=== PATIENT | male | born 1955 | race Caucasian/White ===

== ENCOUNTER → 2020-11-28 | Outpatient (CLI) | payer BC ==
--- NOTE | 2020-11-30 14:07 | PATH ---
[address] [address] PATHOLOGY RPT PROCEDURE Name: JAMES MAYER Room: [facility].#: [id number] Admission: 11/28/20 Date of : 57 Discharge: Report #: [id number] Path Case #: [id number] [facility] Accession Number: [id number] . 01 Material submitted: . foot - TISSUE BX OF LEFT FOOT WOUND. Modifiers: left . 02 Diagnosis: Tissue biopsy of left foot wound: - Scant squamous epithelium and predominantly chronic and acutely inflamed and necrotic fibrovascular stroma, negative for granulomas and malignancy. (SLY/db; 11/30/2020) [facility] 11/30/2020 1328 Local . 02 Electronically signed: . Kobe Burgos MD, Pathologist NPI- [id number] . 01 Gross description: . Received in formalin labeled "James Mayer, tissue BX L foot" are multiple kaye-brown soft tissue fragments measuring in aggregate 0.7 x 0.5 x 0.1 cm. The specimen is submitted entirely in A1. ([facility] [place]; 11/29/2020) [facility] 11/29/2020 1701 Local . 02 Pathologist provided ICD-10: M79.9 . 02 CPT . 389462 Specimen Comment: A courtesy copy of this report has been sent to [phone], [phone] Specimen Comment: [id number] Specimen Comment: Report sent to / DR RICHTER Performed at: 01 [facility] [address], [place], [place] [id number] MD Nathan Hays MD Phone: [phone] Performed at: 02 [facility] [address], [place], [place] [id number] MD Kobe Burgos MD Phone: [phone]
== END ==
LOC: M.WC 12:52
PROVIDERS: ATTEND Podiatrist Foot & Ankle Surgery
DX: E11.621 Type 2 diabetes mellitus with foot ulcer (principal); I83.024 Varicose veins of left lower extremity with ulcer of heel and midfoot; L97.422 Non-pressure chronic ulcer of left heel and midfoot with fat layer exposed; L88 Pyoderma gangrenosum; E11.42 Type 2 diabetes mellitus with diabetic polyneuropathy; Z90.49 Acquired absence of other specified parts of digestive tract; Z79.4 Long term (current) use of insulin

== ENCOUNTER → 2020-12-12 | Outpatient (CLI) | payer BC | LOC: M.WC 12:38 | PROVIDERS: ATTEND Podiatrist Foot & Ankle Surgery | DX: E11.621 Type 2 diabetes mellitus with foot ulcer (principal); I83.024 Varicose veins of left lower extremity with ulcer of heel and midfoot; L97.422 Non-pressure chronic ulcer of left heel and midfoot with fat layer exposed; I83.025 Varicose veins of left lower extremity with ulcer other part of foot; L97.522 Non-pressure chronic ulcer of other part of left foot with fat layer exposed; L88 Pyoderma gangrenosum; E11.42 Type 2 diabetes mellitus with diabetic polyneuropathy; Z90.49 Acquired absence of other specified parts of digestive tract; Z79.4 Long term (current) use of insulin ==

== ENCOUNTER → 2020-12-15 | Outpatient (CLI) | payer BC | LOC: M.WC 11:15 | PROVIDERS: ATTEND Podiatrist Foot & Ankle Surgery | DX: E11.621 Type 2 diabetes mellitus with foot ulcer (principal); I83.024 Varicose veins of left lower extremity with ulcer of heel and midfoot; L97.422 Non-pressure chronic ulcer of left heel and midfoot with fat layer exposed; L88 Pyoderma gangrenosum; E11.42 Type 2 diabetes mellitus with diabetic polyneuropathy; Z90.49 Acquired absence of other specified parts of digestive tract; Z79.4 Long term (current) use of insulin ==

== ENCOUNTER → 2020-12-19 | Outpatient (CLI) | payer BC | LOC: M.WC 12:19 → M.RAD 12:19 → M.WC 13:00 | PROVIDERS: ATTEND Podiatrist Foot & Ankle Surgery | DX: E11.621 Type 2 diabetes mellitus with foot ulcer (principal); I83.024 Varicose veins of left lower extremity with ulcer of heel and midfoot; L97.422 Non-pressure chronic ulcer of left heel and midfoot with fat layer exposed; I83.025 Varicose veins of left lower extremity with ulcer other part of foot; L97.522 Non-pressure chronic ulcer of other part of left foot with fat layer exposed; L88 Pyoderma gangrenosum; E11.42 Type 2 diabetes mellitus with diabetic polyneuropathy; Z90.49 Acquired absence of other specified parts of digestive tract; Z79.4 Long term (current) use of insulin ==

== ENCOUNTER → 2020-12-26 | Outpatient (CLI) | payer BC | LOC: M.WC 12:37 | PROVIDERS: ATTEND Podiatrist Foot & Ankle Surgery | DX: E11.621 Type 2 diabetes mellitus with foot ulcer (principal); I83.024 Varicose veins of left lower extremity with ulcer of heel and midfoot; L97.422 Non-pressure chronic ulcer of left heel and midfoot with fat layer exposed; I83.025 Varicose veins of left lower extremity with ulcer other part of foot; L97.522 Non-pressure chronic ulcer of other part of left foot with fat layer exposed; L88 Pyoderma gangrenosum; E11.42 Type 2 diabetes mellitus with diabetic polyneuropathy; Z90.49 Acquired absence of other specified parts of digestive tract; Z79.4 Long term (current) use of insulin ==

== ENCOUNTER → 2020-12-29 | Outpatient (CLI) | payer BC | LOC: M.WC 12:29 | PROVIDERS: ATTEND Podiatrist Foot & Ankle Surgery | DX: E11.621 Type 2 diabetes mellitus with foot ulcer (principal); I70.244 Atherosclerosis of native arteries of left leg with ulceration of heel and midfoot; L97.421 Non-pressure chronic ulcer of left heel and midfoot limited to breakdown of skin; I70.245 Atherosclerosis of native arteries of left leg with ulceration of other part of foot; L97.522 Non-pressure chronic ulcer of other part of left foot with fat layer exposed; E11.42 Type 2 diabetes mellitus with diabetic polyneuropathy ==